=== PATIENT | male | born 1980 | race Hispanic/Latino ===

== ENCOUNTER 2023-04-26 13:06 | Emergency (ER) | payer SELFPAY ==
[2023-04-26 13:08] VITALS: BP 120/82; PULSE 60; RESP 18; TEMP 36.3; O2SAT 100; BMI 28.9
--- NOTE | 2023-04-26 14:30 | US_ITS ---
STUDY: SCROTUM ULTRASOUND REASON FOR EXAM: Male, 43 years old. left sided testicular pain r/o torsion TECHNIQUE: Ultrasound evaluation of the scrotum was performed with color Doppler and static joshi-scale imaging. COMPARISON: None. FINDINGS: RIGHT TESTICLE INTRATESTICULAR: There is a normal size of the right testicle. The right testicle measures 4.5 x 3 cm. There is a homogenous echotexture. There is normal arterial and normal venous vascularity. There is no demonstrated right testicular mass or cyst. EXTRATESTICULAR: The epididymis is normal in size. The epididymis head measures 1 x 1.4 cm. There is normal vascularity of the epididymis. There is no demonstrated epididymal cystic structure. There is no demonstrated hydrocele. There is no demonstrated varicocele. There is no demonstrated extratesticular mass or cyst. LEFT TESTICLE INTRATESTICULAR: There is a normal size of the left testicle. The left testicle measures 4.2 x 2.7 cm. There is a homogenous echotexture. There is normal arterial and normal venous vascularity. There is no demonstrated left testicular mass or cyst. EXTRATESTICULAR: The epididymis is normal in size. The epididymis head measures 1.2 x 1.2 cm. There is normal vascularity of the epididymis. There is no demonstrated epididymal cystic structure. There is no demonstrated hydrocele. There is no demonstrated varicocele. There is no demonstrated extratesticular mass or cyst. US/Testicular with Arterial Flow IMPRESSION: There are no acute findings of the bilateral testicles without evidence for torsion. Electronically Signed: Sanjeev Lyons MD at 15:45 EST ,
--- NOTE | 2023-04-26 14:31 | CT_ITS ---
STUDY: CT Abdomen And Pelvis W/ Contrast Injection 04/26/2023 3:50 PM REASON FOR EXAM: Male, 43 years old. ABDOMINAL PAIN lower abdominal pain TECHNIQUE: Transaxial images were obtained without oral contrast, and IV 100mL Isovue-370 intravenous contrast. Individualized dose optimization techniques were used for this CT. COMPARISON: None FINDINGS: The visualized lung bases are unremarkable. The visualized portions of the heart are within normal limits. Unremarkable liver. Unremarkable gallbladder and extrahepatic biliary system. Unremarkable spleen. Unremarkable pancreas. Unremarkable bilateral adrenal glands. No acute findings of the right kidney. No acute findings of the left kidney. Unremarkable visualized stomach. Unremarkable small intestine. Unremarkable colon. The appendix is visualized and appears unremarkable. There are no acute findings of the abdominal aorta. Unremarkable inferior vena cava. Subcentimeter mesenteric lymph nodes. Unremarkable urinary bladder. Unremarkable abdominal wall. Unremarkable osseous structures. CT/Abdomen/Pelvis W IV Cont ONLY IMPRESSION: (NOT LISTED IN ORDER OF SIGNIFICANCE) There are no acute findings. Other findings as above. Electronically Signed: Sanjeev Lyons MD at 15:52 EST ,
--- NOTE | 2023-04-26 14:32 | EX.ED.DYSGE1 ---
HPI History of Present Illness Chief Complaint: Abd Pain PFSH PFS Medical History no medical history Home Medications levofloxacin 500 mg tablet 500 mg PO DAILY #30 tabs 04/26/23 [Rx Last Taken Unknown] Allergy/AdvReac Type Severity Reaction Status Date / Time No Known Allergies Allergy Verified 04/26/23 13:17 Surgical History no surgical history Social History Smoking Status: Current every day smoker tobacco type: cigarettes EXAM Physical Exam Const Vital Signs: 04/26/23 13:08 04/26/23 15:09 Temperature 97.3 F L 97.1 F L Temperature Source Temporal Temporal Pulse Rate 60 82 Respiratory Rate 18 16 Blood Pressure 120/82 H 134/75 H Blood Pressure Mean 94 94 Pulse Ox 100 97 Oxygen Delivery Method Room Air Room Air MDM MDM MDM Narrative Medical decision making narrative: HISTORY OF PRESENT ILLNESS: 43-year-old male presents with 4 days of bilateral flank pain, pain with urination. Patient specifically concerned about prostate issue. He notes he has sex with both men and women unprotected and does participate in anal intercourse. Denies history of kidney stones. Denies history abdominal surgeries. Denies any drug use. Denies any chest pain or shortness of breath. Denies any nausea or vomiting. Denies any melena hematochezia. Does note increased frequency and urgency of urination REVIEW OF SYSTEMS: Pertinent positives: abdominal pain, urinary frequency Pertinent negatives: vomiting PHYSICAL EXAM: Nursing triage notes reviewed, Vital signs reviewed Constitutional: please see mdm HENT: MMM Eyes: Pupils equal round and reactive to light, Extraocular muscles intact Neck: No stridor, no JVD, full neck ROM Lungs: Clear to auscultation, No wheezing or rales. No increased work of breathing, no conversational dyspnea, no accessory muscle use, no nasal flaring. No respiratory distress noted Heart: Regular rate and rhythm, No murmurs, No rubs and No gallops, 2+ distal pulses (radial, femoral, posterior tibial) in all extremities Abdomen: Soft, suprapubic tenderness noted, no right lower quadrant tenderness, negative Hernandez sign, no rigidity, rebound or guarding, no obvious peritoneal signs, no palpable pulsatile abdominal masses, no auscultated abdominal bruit : exam performed with credit risk associate in the room Pepper RN. No CVAT, bilateral testicular TTP, normal testicular lie, intact hemostatic reflex, no genital lesions Extremities: No edema Neuro: No focal neurological deficits, cranial nerves II through XII intact, 5/5 strength in all extremities. Intact sensation to light touch in all extremities, 2+ reflexes bilateral patella tendons. Normal gait. No ataxia. Skin: No rash or lesions noted MEDICAL DECISION MAKING: Chief Complaint: Lower abdominal pain External records reviewed: No recent advanced imaging Factors affecting care: none Social determinants of health: none History obtained from others: none Consults: none MDM Narrative: Patient is hemodynamically stable, afebrile, nontoxic-appearing. Exam without obvious peritoneal signs. No obvious lesions noted to the genital area. I considered the following differential diagnosis: Orchitis, epididymitis, prostatitis, UTI, nephrolithiasis I obtained a broad lab and imaging workup to further elucidate etiology patient complaints ALL IMAGES (IF OBTAINED) HAVE BEEN PERSONALLY REVIEWED AND INTERPRETED BY MYSELF. CBC with leukocytosis, no anemia or thrombocytopenia BMP without evidence of significant electrolyte abnormalities, no anion gap, no acute kidney injury. Lipase is wnl indicating no pancreatic inflammation. Urinalysis shows no evidence of urinary inflammation suggestive of UTI CT scan abdomen pelvis shows no acute process Testicular ultrasound shows no evidence of acute abnormality The synthesis of the patient history, physical exam, labs images suggest no acute abnormality. There is occult blood in his urine. Patient was specifically concerned about prostate abnormality. Will give prophylactic antibiotics to cover prostatitis given his concern and history of anal intercourse. Discussed urology follow-up. The patient and/or family, caregivers express understanding. The patient and/or family, caregivers agrees with the plan. Shared decision making: I will have a discussion with the patient and or visitors regarding risk/benefits of further testing or admission. They will be made aware of of the risk/benefits inherent in this decision they will be given the opportunity to voice understanding. Total critical care time today provided was at least 0 minutes. This excludes separately billable procedures. Critical care time (if documented) is secondary to the patient having high probability of clinically significant/life threatening deterioration in the patient's condition which required my urgent intervention. Impression: 1. Dysuria 2. Hematuria Dispo: Discharge This note was generated with [employer] dictation software. It may contain incorrect words, spelling, and punctuation that were not noted in review of the chart prior to signing. Lab Data Labs: Laboratory Results - last 24 hr 04/26/23 04/26/23 15:05 15:08 WBC 11.3 H RBC 5.20 Hgb 15.7 Hct 47.4 MCV 91.2 MCH 30.2 MCHC 33.1 RDW Std Deviation 45.9 H RDW Coeff of Na[place] 13.8 Plt Count 291 MPV 11.0 Immature Gran % (Auto) 0.500 Neut % (Auto) 53.8 Lymph % (Auto) 34.3 [place] % (Auto) 7.4 Eos % (Auto) 3.3 Baso % (Auto) 0.7 Absolute Neuts (auto) 6.1 Absolute Lymphs (auto) 3.88 Nucleated RBC % 0 Sodium 138 Potassium 3.9 Chloride 109 H Carbon Dioxide 27.0 Anion Gap 2 L BUN 18 Creatinine 1.07 Estim Creat Clear Calc 88.92 Est GFR (MDRD) Af Amer 98 Est GFR (MDRD) Non-Af 81 BUN/Creatinine Ratio 16.8 Glucose 98 Calcium 9.2 Total Bilirubin 0.60 AST 19 ALT 23 Alkaline Phosphatase 87 Total Protein 7.8 Albumin 3.6 Globulin 4.2 Albumin/Globulin Ratio 0.9 Lipase 40 Urine Color Yellow Urine Clarity Sl. Cloudy Urine pH 6.0 Ur Specific [place] 1.020 Urine Protein Negative Urine Glucose (UA) Normal Urine Ketones Negative Urine Occult Blood 50 H Urine Nitrite Negative Urine Bilirubin Negative Urine Urobilinogen Normal Ur Leukocyte Esterase Negative Urine RBC 0-5 SEEN Urine WBC 0 SEEN Ur Squamous Epith Cells 0-5 SEEN Urine Bacteria 0 SEEN Urine Mucus 0 SEEN Radiography Diagnostic Testing: Clinical Impression(s) from Imaging Studies Testicular Ultrasound 04/26/23 14:30 IMPRESSION: There are no acute findings of the bilateral testicles without evidence for torsion. Electronically Signed: Sanjeev Lyons MD at 15:45 EST , Abdomen/Pelvis CT 04/26/23 14:31 IMPRESSION: (NOT LISTED IN ORDER OF SIGNIFICANCE) There are no acute findings. Other findings as above. Electronically Signed: Sanjeev Lyons MD at 15:52 EST , Discharge Plan Triage Chief Complaint: Abd Pain ED Provider: Omi [place] Dx/Rx/DC Orders Instructions: ED Prostatitis Prescriptions: New levofloxacin 500 mg tablet 500 mg PO DAILY Qty: 30 0RF Primary Care Provider: Care Physician,No Primary Referrals: Sandeep Pierce MD [Med Staff - Active Staff] - Activity Restrictions/Additional Instructions: Thank you for trusting us with your care today! Please take Tylenol (2 pills, 650 mg), ibuprofen (2 pills, 400 mg) every 6 hours as needed for pain and fever control. Please take antibiotics until course complete. Please return to the emergency department if your symptoms change or worsen. Please follow with your primary care physician for further outpatient evaluation and management. Disposition Disposition: Home, Self Care Discharge Date/Time: 04/26/23 18:23
[2023-04-26 15:09] VITALS: BP 134/75; PULSE 82; RESP 16; TEMP 36.2; O2SAT 97
--- NOTE | 2023-04-26 15:14 | ED.RN ---
PT ALSO HAVING SCROTUM SWELLING AND PAIN.
[2023-04-26 15:23] LABS: Absolute Lymphocyte Count 3.88 X10^3/uL (0.83-4.51); Absolute Neutrophil Count 6.1 X10^3/uL (2.0-7.7); Basophil# 0.08 X10^3/uL; Basophil% 0.7 % (0-1); Eosinophil# 0.37 X10^3/uL; Eosinophils% 3.3 % (0-5); Hematocrit 47.4 % (40-54); Hemoglobin 15.7 g/dL (13.0-16.5); Lymphocyte # 3.88 X10^3/ul (0.83-4.51); Lymphocyte % 34.3 % (19-41); Mean Corp Hgb Conc 33.1 g/dL (32-36); Mean Corpuscular Hgb 30.2 pg (27.0-32.0); Mean Corpuscular Volume 91.2 fL (80-94); Monocyte# 0.84 X10^3/uL; Monocyte% 7.4 % (0-10); NRBC Flagged by Analyzer 0 % (0-5); Neutrophil # 6.07 X10^3/uL (2.7-7.7); Neutrophil % 53.8 % (47-70); Platelet Count 291 K/mm3 (150-450); RBC Distribution Width CV 13.8 % (11.6-14.6); RBC Distribution Width SD 45.9 fl (35.1-43.9); White Blood Count 11.3 K/mm3 (4.4-11.0)
[2023-04-26 15:40] LABS: Bacteria 0 SEEN /hpf (None Seen); Mucous, Urine 0 SEEN /hpf (<or=2+)
[2023-04-26 15:46] LABS: ALB/GLOB Ratio 0.9 RATIO (0.9-2.4); AST(SGOT) 19 U/L (15-37); Alanine Aminotransfer ALT/SGPT 23 U/L (16-61); Albumin, Serum 3.6 g/dL (3.2-5.0); Alkaline Phosphatase 87 U/L (45-117); Anion Gap 2 (5-15); BUN 18 mg/dL (7-18); BUN/Creat Ratio 16.8 RATIO (10-20); Calcium,Total 9.2 mg/dL (8.5-10.1); Chloride 109 mmol/L (98-107); Color, Urine Yellow (Yellow); Creatinine, Serum 1.07 mg/dL (0.70-1.30); EST Glomerular Filtration Rate 81 mL/min (>60); Est Glom Filt Rate - Afr Amer 98 mL/min (>60); Estimated Creatinine Clearance 88.92 ml/min; Globulin 4.2 g/dL (2.2-4.2); Glucose 98 mg/dL (74-106); Glucose, Dipstick Normal (Normal); Ketone-Dipstick Negative (Negative); Leukocyte Esterase-Dipstick Negative /ul (Negative); Lipase 40 U/L (13-75); Nitrite-Dipstick Negative (Negative); Occult Blood-Urine 50 /ul (Negative); Potassium 3.9 mmol/L (3.5-5.1); Protein, Total 7.8 g/dL (6.4-8.2); Protein-Dipstick Negative (Negative); Sodium Level 138 mmol/L (136-145); Urine Bilirubin Dipstick Negative (Negative); Urine Clarity Sl. Cloudy (Clear); Urine Urobilinogen Normal (Normal)
[2023-04-26 16:01] LABS: Red Blood Cells-Urine 0-5 SEEN /hpf (0-5); Squamous Epithelial Cells - UA 0-5 SEEN /hpf (0-5); White Blood Cells 0 SEEN /hpf (0-5)
== END 2023-04-26 18:23 | disposition home or self-care (01) ==
PROVIDERS: Emergency Provider Emergency Medicine; Visit Provider Emergency Medicine
DX: R30.0 Dysuria (principal); R31.9 Hematuria, unspecified; F17.210 Nicotine dependence, cigarettes, uncomplicated; R39.15 Urgency of urination; Z79.899 Other long term (current) drug therapy; R35.0 Frequency of micturition
CPT/HCPCS: 74177; 76870; 80053; 81001; 83690; 85025; 93976; 99283; Q9967; A4216